=== PATIENT | male | born 1955 | race Two or more races ===

== ENCOUNTER 2020-05-19 08:29 | Inpatient (IN) | payer OTHER ==
--- NOTE | 2020-05-13 11:05 | NUR ---
"*-* CASE MANAGEMENT INSURANCE INFORMATION *-* CERTIFIED LETTER FOR TOTAL KNEE REPLACEMENT IS SCHEDULED FOR 05/19/[address] VILLALOBOS. Please call or email Adjustor LUIS ANTONIO VALENTIN [phone] EMAIL [email or web address] Claim# [id number] DOS 05/19/2020 DOI 06/11/2019 *-* PLEASE UTILIZE LETTER EMAILED TO HOLLY VILLALPANDO FOR DISCHARGE PLANNING NEEDS *-* *-* NO CLINICALS HAVE BEEN FAXED INSURANCE INFORMATION ONLY *-* Addendum: 05/13/20 at 1241 by HOLLY VILLALPANDO Luis Antonio Valentin | Sr. Winery Worker [place], [place] DIRECT [phone] | FAX [phone] EMAIL [email or web address] | Caring counts"
[~2020-05-19] VITALS: Ht 175.3 cm; Wt 113.4 kg
[2020-05-19] VITALS (20 sets, daily range): BP systolic 106–127; BP diastolic 67–86
--- NOTE | 2020-05-19 07:09 | Pre-Procedure Note/Attestation ---
Pre-Procedure Note/Attestation Complete Prior to Procedure Planned Procedure: left Procedure Narrative: left total knee arthroplasty Indications for Procedure Pre-Operative Diagnosis: left knee arthritis Attestation I attest that I discussed the nature of the procedure; its benefits; risks and complications; and alternatives (and the risks and benefits of such alternatives ), prior to the procedure, with the patient (or the patient's legal professional healthcare representative). I attest that, if there was a reasonable possibility of needing a blood transfusion, the patient (or the patient's legal professional healthcare representative) was given the [facility] standardized written summary, pursuant to the Jay Pretty Blood Safety Act ([place] Health and Safety Code # 1645, as amended). I attest that I re-evaluated the patient just prior to the surgery and that there has been no change in the patient's H&P, except as documented below: NONE Jerel Bobo MD May 19, 2020 07:09
[~2020-05-19 08:29] MED LIST: ceFAZolin 1gm IVPB IVPB ONE; celeBREX 200mg Cap **SURGERY PATIENTS ONLY ORAL ONE; oxyCONTIN 10mg tab ORAL ONE
[2020-05-19] MEDS ORDERED: LR 1000ml 1,000 ML IVLG SCH (09:28)
[2020-05-19] MEDS ORDERED: oxyCODONE HCL/Acetaminophen 5/325mg ORAL PRN (09:30)
[2020-05-19] MEDS ORDERED: Metoclopramide 10mg/2ml Inj IVP PRN (09:30)
[2020-05-19] MEDS ORDERED: HYDROcodone/Acetamin 7.5/325 tab ORAL PRN ×2 (09:30→11:30)
[2020-05-19] MEDS ORDERED: DiphenhydrAMINE 50mg/ml Inj IVP PRN (09:30)
[2020-05-19] MEDS ORDERED: HYDROcodone/Acetamin 5/325 tab ORAL PRN ×2 (09:30→11:30)
[2020-05-19] MEDS ORDERED: Hydromorphone 0.5mg/0.5ml inj IVP PRN (09:30)
[2020-05-19] MEDS ORDERED: Acetaminophen (Non formulary) 100 ML IV ONE (09:30)
[2020-05-19] MEDS ORDERED: Meperidine 25mg/0.5ml Inj (FOR RIGORS ONLY) IV PRN (09:30)
[2020-05-19] MEDS ORDERED: Labetalol 5mg/ml 20ml vial IV PRN (09:30)
[2020-05-19] MEDS ORDERED: fentaNYL 100 mcg/2 mL IV PRN (09:30)
[2020-05-19] MEDS ORDERED: Midazolam 2mg/2ml Inj IVP PRN (09:30)
[2020-05-19] MEDS ORDERED: LORazepam Inj 2mg/ml 1ml IV PRN (09:30)
[2020-05-19] MEDS ORDERED: Atropine Sulfate 0.4mg/ml inj IVP PRN (09:30)
[2020-05-19] MEDS ORDERED: Tranexamic Acid 1,000 MG in NS 65 ML IV ONE (09:30)
[2020-05-19] MEDS ORDERED: Ketorolac 30mg Inj IV PRN ×2 (09:30)
--- NOTE | 2020-05-19 09:31 | Immediate Post-Op Evaluation ---
Immediate Post-Op Evalulation Immediate Post-Op Evalulation Procedure: L TKR Date of Evaluation: May 19, 2020 Time of Evaluation: 13:47 IV Fluids: 1000 LR Blood Products: 0 Estimated Blood Loss: 75 Urinary Output: 75 Blood Pressure Systolic: 109 Blood Pressure Diastolic: 67 Pulse Rate: 86 Respiratory Rate: 16 O2 Sat by Pulse Oximetry: 93 Temperature (Fahrenheit): 98.1 Pain Score (1-10): 2 Nausea: No Vomiting: No Complications Stable Patient Status: awake, reacts, patent, none Hydration Status: adequate Dru Grams Ancef IV Given Within 1 Hr of Incision: Yes Time Given: 10:46 Rudolph Lam MD May 19, 2020 09:31
[2020-05-19] MEDS ORDERED: Ropivacaine 5mg/ml Vial 20ml INJ ONE (10:00)
[2020-05-19] MEDS ORDERED: GLIPIZIDE5 MG ORAL (10:01)
[2020-05-19] MEDS ORDERED: METFORMIN HCL500 M1 ORAL (10:01)
[2020-05-19] MEDS ORDERED: ASPIR 8181 MG ORAL (10:01)
[2020-05-19] MEDS ORDERED: ATORVASTATIN CA40 MG ORAL (10:01)
[2020-05-19] MEDS ORDERED: bp med PO (10:01)
--- NOTE | 2020-05-19 10:06 | Anethesia Preoperative Eval ---
Anesthesia Pre-op PMH/ROS General Date of Evaluation: May 19, 2020 Time of Evaluation: 10:16 Anesthesiologist: Genaro ASA Score: ASA 3 Mallampati Score Class I : Soft palate, uvula, fauces, pillars visible Class II: Soft palate, uvula, fauces visible Class III: Soft palate, base of uvula visible Class IV: Only hard plate visible Mallampati Classification: Class III Surgeon: Jeramie Diagnosis: L Knee Pain Surgical Procedure: L TKR Anesthesia History: none Family History: no anesthesia problems Allergies: Coded Allergies: No Known Allergies (Unverified , 05/19/20) Medications: see eMAR Patient NPO?: Yes Past Medical History Cardiovascular: Reports: HTN, other - HL Pulmonary: Reports: other - Pneumonia Endocrine: Reports: DM Musculoskeletal/Integumentary: Reports: OA Other: obesity - BMI 39 Anesthesia Pre-op Phys. Exam Physician Exam Last Vital Signs Date Time Temp Pulse Resp B/P (MAP) Pulse Ox O2 Delivery O2 Flow Rate FiO2 05/19/20 09:55 98.5 73 18 106/71 (83) 96 Constitutional: NAD Neurologic: CN 2-12 intact Cardiovascular: RRR Respiratory: CTA Gastrointestinal: S/NT/ND Airway Exam Mallampati Score: Class III MO: limited ROM: limited Teeth: missing, intact Anesthesia Pre-op A/P Labs Chemistry Test 05/19/20 09:38 POC Whole Blood Glucose 147 MG/DL (74-106) H Risk Assessment & Plan Assessment: ASA 3 Plan: GA, L Adductor/Femoral Block, SED Pre-Antibiotics Dru Grams Ancef IV Given Within 1 Hr of Incision: Yes Time Given: 10:46 Rudolph Lam MD May 19, 2020 10:06
[2020-05-19] MEDS ORDERED: Lidocaine 1% MPF 10mg/ml 5ml ONE (10:09)
[2020-05-19] MEDS ORDERED: Sodium Chloride 10ml vial INJ ONE (10:09)
[2020-05-19] MEDS ORDERED: celeBREX 200mg Cap **SURGERY PATIENTS ONLY ORAL ONE (10:11)
[2020-05-19] MEDS ORDERED: oxyCONTIN 10mg tab ORAL ONE (10:11)
[2020-05-19] MEDS ORDERED: fentaNYL 100 mcg/2 mL IV ONE ×2 (10:12→11:13)
[2020-05-19] MEDS ORDERED: NeoSporin Gu Irrig 1ml Amp IRRIG ONE (10:17)
[2020-05-19] MEDS ORDERED: Bacitracin 50000 Units Vial ONE (10:17)
--- NOTE | 2020-05-19 10:22 | 48 Hour Post Anesthesia Eval ---
Post Anesthesia Evaluation Procedure: L TKR Date of Evaluation: May 19, 2020 Time of Evaluation: 15:48 Blood Pressure Systolic: 122 0: 87 Pulse Rate: 69 Respiratory Rate: 18 Temperature (Fahrenheit): 98 O2 Sat by Pulse Oximetry: 96 Airway: patent Nausea: No Vomiting: No Pain Intensity: 2 Hydration Status: adequate Cardiopulmonary Status: Stable Mental Status/LOC: patient returned to baseline Follow-up Care/Observations: 0 Post-Anesthesia Complications: 0 Follow-up care needed: N/A Rudolph Lam MD May 19, 2020 10:22
[2020-05-19] MEDS ORDERED: NS Irrig 1000ml ONE (10:30)
[2020-05-19] MEDS ORDERED: NS Irrig 2000ml IRRIG ONE (10:30)
[2020-05-19] MEDS ORDERED: LR 1000ml ONE (10:30)
[2020-05-19] MEDS ORDERED: Sterile Water Irrig 1000ml IRRIG ONE (10:30)
[2020-05-19] MEDS ORDERED: HYDROmorphone 1mg/ml Carpuject SUBQ PRN (11:30)
[2020-05-19] MEDS ORDERED: Milk of Magnesia 30ml Ud ORAL PRN (11:30)
[2020-05-19] MEDS: Docusate 100mg cap ORAL SCH ×2 (13:00→18:00)
--- NOTE | 2020-05-19 13:23 | Brief Operative Note ---
Immediate Post Operative Note Operative Note Chief Complaint: left knee pain Pre-op Diagnosis: left knee arthritis Procedure: left total knee arthroplasty Post-op Diagnosis: same as pre-op Surgeon: md arpan Flat Bed Operator: ace meade Anesthesiologist: md tereza Anesthesia: general Specimen: yes Complications: none Condition: stable Fluids: ns Estimated Blood Loss: minimal Drains: none Implant(s) used?: Yes - Jerel Cisneros MD May 19, 2020 13:23
--- NOTE | 2020-05-19 15:32 | NUR ---
NURSE NOTES: Received report from Lizeth Hernandez RN, pt a/a/o easy to arouse, with no signs of distress or other issues at this time. no c/o of pain. surgical dressing dry and intact, knee immobilizer as well as ice pack in place. IV on the right hand gauge#18 running D51/2NS @75ml/hr. will review orders and will carry on as indicated. I will f/u as needed.
--- NOTE | 2020-05-19 15:45 | Operative Note - Dictated ---
DATE OF OPERATION: 05/19/2020 PREOPERATIVE DIAGNOSIS: Left knee end-stage arthritis. POSTOPERATIVE DIAGNOSIS: Left knee end-stage arthritis. PROCEDURE: Left total knee arthroplasty using Bree Triathlon System, size 7 femur, size 6 tibia, size 33 mm all-poly patella, and 9 mm ultra cross-linked tibial insert. SURGEON: Cherise Bobo MD. PLASTIC SURGERY NURSE: Raissa Tyler PA-C. ANESTHESIOLOGIST: Rudolph Lam MD. ANESTHESIA: General LMA anesthesia combined with adductor block for postoperative pain management. ESTIMATED BLOOD LOSS: Less than 50 mL. TOURNIQUET TIME: 75 minutes. COMPLICATIONS: None. BRIEF HISTORY: Patient is a pleasant 64-year-old gentleman who has had ongoing left knee pain. He failed nonoperative treatment. After full discussion of risks and benefits of surgery and complications associated with it including infection, bleeding, neurovascular complication, possibility of continued pain, possibility of DVT, PE, need for resection arthroplasty, continued stiffness and loss of motion, other complications that may arise and revision surgery as may be necessary, he opted for surgical treatment as described above. OPERATIVE PROCEDURE: Patient was brought to the operating room and was placed supine. All pressure points were well padded. General anesthesia was induced and adductor block was performed. The left leg was prepped and draped in usual sterile fashion and time-out was performed and preop antibiotics and tranexamic acid was given. The left knee was exsanguinated. Tourniquet was inflated to 275 mmHg. Standard anterior approach to the knee was undertaken. The incision was taken through subcutaneous tissue. Medial parapatellar arthrotomy was performed. The fluid was removed. The medial releases were performed and the patella was everted and knee was flexed. The fat pad was removed and ACL and PCL were removed. All osteophytes were removed. At this point, intramedullary access into the canal was obtained using a drill. Intramedullary guide was placed and 5 degree valgus distal femoral cut was performed without any complication. At this point, measurements were made and size 7 femur appeared to be the right side. A cutting guide was placed in 3 degrees of external rotation. Anterior, posterior, and chamfer cuts were performed without any complication. The trial femur was applied and slightly lateralized and peg holes were drilled. At this point, care was given to the tibia. The anterior tibial spine was cherise to recreate anatomical axis. The extramedullary guide was applied and anatomical axis was recreated and slope was recreated. At this point, 9 mm was taken off the least involved side which was the lateral side. Posterior, medial, and lateral retractors were placed in and patellar tendon was protected and the cut was performed without any complication. This provided excellent tibial cut and alignment appeared to be excellent. At this point, the flexion-extension gap was checked and appeared to be equal in flexion and extension. The sizing of tibia was performed and size 6 tibia appeared to be the right size. The tibia was placed in about 3 degrees external rotation and it was drilled and then punched. At this point, care was given to the patella. The patella was everted, it measured 25 mm in thickness. A freehand cut of the patella was performed and 33 mm patella appeared to be the right fit. The peg holes were drilled without any complication. At this point, the femoral component, tibial component, and the patellar component were all applied for trials and 9 mm poly was inserted. The range of motion was checked and appeared to be excellent at 0, 30 degrees, 45 degrees, 90 degrees. There was excellent stability at those various degrees. Patellofemoral joint had excellent patellofemoral tracking. At this point, all trial components were removed and the knee was thoroughly washed out using Simpulse irrigation and the femoral component, tibial component, and patellar components were all cemented without any complication. Excess cement was removed. Cement was allowed to harden in compression. Once this was completed, the knee was thoroughly irrigated again. The trialing was performed using different tibial inserts, 9 mm insert appeared to be the right side. At this point, after washing out the tibial tray and the entire knee, a 9 mm ultra cross-linked polyethylene was inserted without any complication with locking. All wounds were then thoroughly irrigated using copious amount of fluid. The tourniquet was deflated. There were minimal bleeders, which were stopped. The extensor mechanism was closed using #1 Vicryl suture. Subcutaneous tissue was closed using 2-0 Vicryl suture. The skin was closed using 3-0 Monocryl suture. Dermabond was applied. Sterile dressing was applied. The patient was taken to recovery room in stable condition. All lap counts and instrument counts were correct. Cherise Bobo M.D. DR: CHANTEL JOB#: [id number] CC: DESHAWN
[2020-05-19] MEDS: D5 1/2NS w/KCl 20mEq 1,000 ML IV SCH (16:00)
--- NOTE | 2020-05-19 17:24 | Diagnostic Imaging Report ---
Indications: Postoperative, knee pain Technique: Two views of the left knee Comparison: None Findings: Two postoperative views of the knee demonstrate total knee arthroplasty, good anatomic alignment of the prosthesis. . There is postsurgical soft tissue air. Impression: Postoperative left knee, no unusual features.
--- NOTE | 2020-05-19 19:44 | NUR ---
NURSE HAND-OFF: Important Events on Shift: n/a Patient Status: FULL code Diet: clear liquids advanced to regular Pending Orders: Pending Results/Labs:CBC, BMP Pending MD notification: n/a Latest Vital Signs: Temperature 97.5 , Pulse 108 , B/P 119 /82 , Respiratory Rate 20 , O2 SAT 94 , Nasal Cannula, O2 Flow Rate 4 . Vital Sign Comment: heart rate in the high 110's but asymptomatic no chest pain Latest Oconnor Fall Score: Fall Risk: unknown, s/p left TKA Safety Measures: Call light , Bed Alarm , Side Rails Side Rails x1, Bed position . Fall Precautions: Report given to Swetha BLAS. pt in stable condition
--- NOTE | 2020-05-19 19:45 | NUR ---
NURSE NOTES: Received report from Pippa BLAS. Rounding is done. Patient is a/ox4. Denied any pain at this time. NO any distress noted at this time. Breathing is even and unlabored. Patient void during morning shift and will continue to monitor. IV site is intact and iv fluid is running. Surgical Dressing is c/d/i. applied immobilizer helping by Viet. Bed is on alarm, locked, and lowest position. Call light within reach. Will continue to monitor.
[2020-05-19] MEDS: NovoLOG Insulin Flexpen SUBQ SCH (21:00)
[2020-05-19] MEDS: oxyCONTIN 10mg tab ORAL SCH (21:00)
[2020-05-19] MEDS: ceFAZolin sod 1 GM in D5W 55 ML IV SCH (22:00)
[2020-05-20] VITALS: BP 111/80
[2020-05-20 04:00] VITALS: BP 116/74
[2020-05-20] MEDS: ceFAZolin sod 1 GM in D5W 55 ML IV SCH (04:59)
[2020-05-20] MEDS: D5 1/2NS w/KCl 20mEq 1,000 ML IV SCH (04:59)
[2020-05-20 05:37] LABS: BASOPHILS % (AUTO) 1.2 % (0.0-2.0); HEMATOCRIT 42.8 % (42.0-52.0); HEMOGLOBIN 13.7 G/DL (14.2-18.0); LYMPHOCYTES % (AUTO) 8.8 % (20.0-45.0); MEAN CORPUSCULAR VOLUME 93 FL (80-99); MONOCYTES % (AUTO) 7.9 % (1.0-10.0); NEUTROPHILS % (AUTO) 82.1 % (45.0-75.0); PLATELET COUNT 237 K/UL (150-450); RED BLOOD COUNT 4.59 M/UL (4.70-6.10); RED CELL DISTRIBUTION WIDTH 12.4 % (11.6-14.8); WHITE BLOOD COUNT 7.3 K/UL (4.8-10.8)
[2020-05-20] MEDS: NovoLOG Insulin Flexpen SUBQ SCH ×4 (05:43→20:17)
[2020-05-20 05:52] LABS: ANION GAP 8 mmol/L (5-15); BLOOD UREA NITROGEN 29 mg/dL (7-18); CALCIUM 8.5 MG/DL (8.5-10.1); CARBON DIOXIDE 30 MMOL/L (21-32); CHLORIDE 99 MMOL/L (98-107); CREATININE 1.6 MG/DL (0.55-1.30); POTASSIUM 3.7 MMOL/L (3.5-5.1); SODIUM 137 MMOL/L (136-145)
--- NOTE | 2020-05-20 07:16 | NUR ---
NURSE HAND-OFF: Important Events on Shift:[POST OP] Patient Status: [STABLE] Diet: [REGULAR] Pending Orders: [NONE] Pending Results/Labs:[NONE] Pending MD notification:[NONE] Latest Vital Signs: Temperature 98.5 , Pulse 91 , B/P 116 /74 , Respiratory Rate 19 , O2 SAT 95 , Nasal Cannula, O2 Flow Rate 3.0 . Vital Sign Comment: [STABLE] Latest Oconnor Fall Score: Fall Risk: Safety Measures: Call light , Bed Alarm , Side Rails Side Rails x1, Bed position . Fall Precautions: Report given to [GLORIA RN].
--- NOTE | 2020-05-20 07:45 | NUR ---
NURSE NOTES: Received report from Swetha BLAS. Patient is awake in bed in RA. Pt a/ox4, able to make needs known. Denied any pain at this time. NO any distress noted. Breathing is even and unlabored. IV site is intact and iv fluid is running. Surgical Dressing is c/d/i. Noted immobilizer in place. Bed is on alarm, locked, and lowest position. Call light within reach. Will continue to monitor.
[2020-05-20 08:00] VITALS: BP 130/74
--- NOTE | 2020-05-20 08:05 | Orthopedic Progress Note ---
Orthopedic - Progress Note Subjective Symptoms: improved Objective Laboratory Tests Test 05/19/20 09:38 05/19/20 17:03 05/19/20 22:15 05/20/20 04:50 POC Whole Blood Glucose 147 MG/DL (74-106) H 231 MG/DL (74-106) H 308 MG/DL (74-106) H White Blood Count 7.3 K/UL (4.8-10.8) Red Blood Count 4.59 M/UL (4.70-6.10) L Hemoglobin 13.7 G/DL (14.2-18.0) L Hematocrit 42.8 % (42.0-52.0) Mean Corpuscular Volume 93 FL (80-99) Mean Corpuscular Hemoglobin 29.9 PG (27.0-31.0) Mean Corpuscular Hemoglobin Concent 32.1 G/DL (32.0-36.0) Red Cell Distribution Width 12.4 % (11.6-14.8) Platelet Count 237 K/UL (150-450) Mean Platelet Volume 6.3 FL (6.5-10.1) L Neutrophils (%) (Auto) 82.1 % (45.0-75.0) H Lymphocytes (%) (Auto) 8.8 % (20.0-45.0) L Monocytes (%) (Auto) 7.9 % (1.0-10.0) Eosinophils (%) (Auto) 0.0 % (0.0-3.0) Basophils (%) (Auto) 1.2 % (0.0-2.0) Sodium Level 137 MMOL/L (136-145) Potassium Level 3.7 MMOL/L (3.5-5.1) Chloride Level 99 MMOL/L (98-107) Carbon Dioxide Level 30 MMOL/L (21-32) Anion Gap 8 mmol/L (5-15) Blood Urea Nitrogen 29 mg/dL (7-18) H Creatinine 1.6 MG/DL (0.55-1.30) H Estimat Glomerular Filtration Rate 43.9 mL/min (>60) Glucose Level 282 MG/DL (74-106) H Calcium Level 8.5 MG/DL (8.5-10.1) Last 24 Hour Vital Signs Date Time Temp Pulse Resp B/P (MAP) Pulse Ox O2 Delivery O2 Flow Rate FiO2 8/19/20 04:00 98.5 91 19 116/74 (88) 95 05/20/20 00:00 98.1 101 19 111/80 (90) 94 05/19/20 21:30 97.5 05/19/20 21:00 Nasal Cannula 3.0 05/19/20 20:00 98.6 106 19 127/84 (98) 95 05/19/20 18:00 97.5 108 20 119/82 (94) 94 05/19/20 17:30 98.1 107 20 121/80 (94) 93 05/19/20 17:00 97.2 104 18 111/84 (93) 93 05/19/20 16:30 98.1 105 20 118/81 (93) 95 05/19/20 16:00 97.9 103 20 124/82 (96) 95 05/19/20 15:30 97.2 100 20 120/86 (97) 94 05/19/20 15:15 97.8 102 18 126/83 (97) 92 05/19/20 14:50 94 16 122/79 94 Nasal Cannula 4 05/19/20 14:40 97.8 96 16 123/83 95 Nasal Cannula 4 05/19/20 14:30 94 15 120/83 94 Nasal Cannula 4 05/19/20 14:25 93 16 123/84 94 Nasal Cannula 4 05/19/20 14:15 92 16 121/81 98 Simple Mask 8 05/19/20 14:05 92 17 122/79 94 Simple Mask 8 05/19/20 13:55 85 17 118/78 94 Simple Mask 8 05/19/20 13:50 85 14 118/78 91 Simple Mask 10 05/19/20 13:45 85 15 107/77 91 Simple Mask 10 05/19/20 13:40 85 15 107/72 92 Simple Mask 10 05/19/20 13:35 98.1 86 16 109/67 92 Simple Mask 10 05/19/20 13:35 69 18 96 05/19/20 13:34 86 16 93 05/19/20 10:01 Room Air 05/19/20 09:55 98.5 73 18 106/71 (83) 96 Intake and Output 05/19/20 05/20/20 19:00 07:00 Intake Total 1150 ml 505 ml Output Total 125 ml Balance 1025 ml 505 ml Intake IV Total 1150 ml 505 ml Output Urine Total 75 ml Estimated Blood Loss 50 ml # Voids 1 Laboratory Tests Test 05/19/20 09:38 05/19/20 17:03 05/19/20 22:15 05/20/20 04:50 POC Whole Blood Glucose 147 MG/DL (74-106) H 231 MG/DL (74-106) H 308 MG/DL (74-106) H White Blood Count 7.3 K/UL (4.8-10.8) Red Blood Count 4.59 M/UL (4.70-6.10) L Hemoglobin 13.7 G/DL (14.2-18.0) L Hematocrit 42.8 % (42.0-52.0) Mean Corpuscular Volume 93 FL (80-99) Mean Corpuscular Hemoglobin 29.9 PG (27.0-31.0) Mean Corpuscular Hemoglobin Concent 32.1 G/DL (32.0-36.0) Red Cell Distribution Width 12.4 % (11.6-14.8) Platelet Count 237 K/UL (150-450) Mean Platelet Volume 6.3 FL (6.5-10.1) L Neutrophils (%) (Auto) 82.1 % (45.0-75.0) H Lymphocytes (%) (Auto) 8.8 % (20.0-45.0) L Monocytes (%) (Auto) 7.9 % (1.0-10.0) Eosinophils (%) (Auto) 0.0 % (0.0-3.0) Basophils (%) (Auto) 1.2 % (0.0-2.0) Sodium Level 137 MMOL/L (136-145) Potassium Level 3.7 MMOL/L (3.5-5.1) Chloride Level 99 MMOL/L (98-107) Carbon Dioxide Level 30 MMOL/L (21-32) Anion Gap 8 mmol/L (5-15) Blood Urea Nitrogen 29 mg/dL (7-18) H Creatinine 1.6 MG/DL (0.55-1.30) H Estimat Glomerular Filtration Rate 43.9 mL/min (>60) Glucose Level 282 MG/DL (74-106) H Calcium Level 8.5 MG/DL (8.5-10.1) Wound: clean, dry, intact Drains: none Neuro Status: normal Vascular Status: normal Additional Comments xray reviewed: excellent Assessment Post-op Diagnosis POD 1 left total knee arthroplasty Plan Plan: PT, discharge plan - possibly home with services and DME tomorrow Raissa Tyler May 20, 2020 08:05
[2020-05-20] MEDS: celeBREX 200mg Cap **SURGERY PATIENTS ONLY ORAL SCH (09:12)
[2020-05-20] MEDS: Docusate 100mg cap ORAL SCH ×3 (09:12→17:45)
[2020-05-20] MEDS: oxyCONTIN 10mg tab ORAL SCH ×2 (09:13→20:10)
[2020-05-20 12:00] VITALS: BP 111/73
--- NOTE | 2020-05-20 15:18 | NUR ---
CASE MANAGEMENT: INITIAL REVIEW 64YR MALE HERE FOR SCHEDULE SURGERY CC: LEFT KNEE ARTHRITIS SI: LEFT KNEE ARTHRITIS 98.5 73 18 106/71 96% ON RA BG 308 IS: IN SURG NOW LEFT KNEE ARTHROPLASTY X-RAY KNEE L-Postoperative left knee, no unusual features. \: 3E MED SURG UNIT CASE MANAGEMENT: REVIEW 05/20/20 SI: S/P LEFT KNEE ARTHROPLASTY LEFT KNEE ARTHRITIS 97.8 95 19 111/73 96% ON RA BUN/CREAT 29/1.6 BG 282 IS: IV D5 @75ML/HR ASA PO QD FEOSOL PO TID OXYCONTIN PO BID \: [facility] SURG UNIT
--- NOTE | 2020-05-20 15:20 | NUR ---
P.T Note: P.T evaluation completed and tx initiated per TKR protocol. Please refer to P.T evaluation for current functional status POC and recommendation.
--- NOTE | 2020-05-20 16:01 | NUR ---
*-* INSURANCE *-* UPDATED CLINICALS AND REVIEWS HAVE BEEN FAXED TO: Adjustre[employer] VALENTIN PH [phone] EMAIL [email or web address]
[2020-05-20 16:30] VITALS: BP 121/73
--- NOTE | 2020-05-20 17:03 | General Progress Note ---
Assessment/Plan Assessment/Plan: sp knee replacement htn hld type 2 diabetes post op care pain control PT oob bp controlled accuchecks noted on ss insulin dvt and ulcer prophylaxis Subjective Allergies: Coded Allergies: No Known Allergies (Unverified , 05/19/20) Subjective doing well post knee replacment pos pain no chest pain or sob pos passing gas and bm Objective Last 24 Hour Vital Signs Date Time Temp Pulse Resp B/P (MAP) Pulse Ox O2 Delivery O2 Flow Rate FiO2 05/20/20 12:00 97.8 95 19 111/73 (86) 96 05/20/20 09:43 98.5 05/20/20 09:00 Nasal Cannula 3.0 05/20/20 08:00 97.8 70 19 130/74 (92) 97 05/20/20 04:00 98.5 91 19 116/74 (88) 95 05/20/20 00:00 98.1 101 19 111/80 (90) 94 05/19/20 21:00 Nasal Cannula 3.0 05/19/20 20:00 98.6 106 19 127/84 (98) 95 05/19/20 18:00 97.5 108 20 119/82 (94) 94 05/19/20 17:30 98.1 107 20 121/80 (94) 93 Intake and Output 05/19/20 05/20/20 19:00 07:00 Intake Total 1150 ml 505 ml Output Total 125 ml Balance 1025 ml 505 ml Intake IV Total 1150 ml 505 ml Output Urine Total 75 ml Estimated Blood Loss 50 ml # Voids 1 Laboratory Tests 05/19/20 17:03: POC Whole Blood Glucose 231H 05/19/20 22:15: POC Whole Blood Glucose 308H 05/20/20 04:50: White Blood Count 7.3, Red Blood Count 4.59L, Hemoglobin 13.7L, Hematocrit 42.8 , Mean Corpuscular Volume 93, Mean Corpuscular Hemoglobin 29.9, Mean Corpuscular Hemoglobin Concent 32.1, Red Cell Distribution Width 12.4, Platelet Count 237, Mean Platelet Volume 6.3L, Neutrophils (%) (Auto) 82.1H, Lymphocytes (%) (Auto) 8.8L, Monocytes (%) (Auto) 7.9, Eosinophils (%) (Auto) 0.0, Basophils (%) (Auto) 1.2, Sodium Level 137, Potassium Level 3.7, Chloride Level 99, Carbon Dioxide Level 30, Anion Gap 8, Blood Urea Nitrogen 29H, Creatinine 1.6H, Estimat Glomerular Filtration Rate 43.9, Glucose Level 282H, Calcium Level 8.5 05/20/20 11:51: POC Whole Blood Glucose [Pending] Height (Feet): 5 Height (Inches): 9.00 Weight (Pounds): 250 General Appearance: WD/WN, no apparent distress Neck: supple Cardiovascular: normal rate Respiratory/Chest: lungs clear Abdomen: soft Edema: no edema noted Arm (L), no edema noted Arm (R), no edema noted Leg (L), no edema noted Leg (R), no edema noted Pedal (L), no edema noted Pedal (R), no edema noted Generalized Objective knee dressing clean no sign of infection neurvascular intact Cuate Villalobos MD May 20, 2020 17:03
--- NOTE | 2020-05-20 19:30 | NUR ---
NURSE NOTES: Received report from Alicja Goddard RN. Patient seen walking with walker, steady gait. Uses urinal.
--- NOTE | 2020-05-20 19:30 | NUR ---
NURSE HAND-OFF: Important Events on Shift:[N] Patient Status: [stable] Diet: [Reg] Pending Orders: [n] Pending Results/Labs:[n] Pending MD notification:[n] Latest Vital Signs: Temperature 98.5 , Pulse 82 , B/P 121 /73 , Respiratory Rate 19 , O2 SAT 96 , Nasal Cannula, O2 Flow Rate 3.0 . Vital Sign Comment: [stable] Latest Oconnor Fall Score: Fall Risk: Safety Measures: Call light Within Reach, Bed Alarm Zone 2, Side Rails Side Rails x2, Bed position Low and Locked. Fall Precautions: Report given to [ROOPA Lujan].
--- NOTE | 2020-05-20 19:45 | NUR ---
NURSE NOTES: Patient requested to be off of CMP. Tolerated activity well.
[2020-05-20 20:00] VITALS: BP 122/84
[2020-05-21] VITALS: BP 110/69
[2020-05-21 05:39] LABS: BASOPHILS % (AUTO) 1.1 % (0.0-2.0); HEMATOCRIT 40.2 % (42.0-52.0); LYMPHOCYTES % (AUTO) 13.5 % (20.0-45.0); MEAN CORPUSCULAR VOLUME 92 FL (80-99); MONOCYTES % (AUTO) 11.5 % (1.0-10.0); PLATELET COUNT 198 K/UL (150-450); RED BLOOD COUNT 4.35 M/UL (4.70-6.10); RED CELL DISTRIBUTION WIDTH 12.2 % (11.6-14.8); WHITE BLOOD COUNT 6.9 K/UL (4.8-10.8)
[2020-05-21] MEDS: NovoLOG Insulin Flexpen SUBQ SCH ×2 (06:08→11:50)
--- NOTE | 2020-05-21 07:30 | NUR ---
NURSE NOTES: RECEIVED PATIENT A/A/OX4 IN BED ON A SITTING POSITION. IV ACCESS GOT D/C'D BY PATIENT ACCIDENTALLY. PER DR. VILLALOBOS IS OKAY NOT TO HAVE IV ACCESS. PATIENT WILL BE DISCHARGE TODAY. APPETITE IS INADEQUATE. UTILIZE IS W/A 10X. NO ACUTE RESP DISTRESS NOTED. REFUSED TO HAVE SCD'S ON. SURGICAL DRSG IS DRY AND INTACT. KEEP BED IN THE LOWEST POSITION, SIDERAILS ARE UPX2, CALL LIGHT IS WITHIN EASY REACH. BED BRAKES AND LOCK ENGAGED. WILL CONT TO MONITOR.
--- NOTE | 2020-05-21 07:31 | Orthopedic Progress Note ---
Orthopedic - Progress Note Subjective Symptoms: c/o post-op knee pain Objective Last 24 Hour Vital Signs Date Time Temp Pulse Resp B/P (MAP) Pulse Ox O2 Delivery O2 Flow Rate FiO2 05/21/20 00:00 98.2 111 20 110/69 (83) 96 05/20/20 21:00 Room Air 05/20/20 20:40 98.5 05/20/20 20:00 98.8 102 19 122/84 (97) 97 05/20/20 16:30 98.5 82 19 121/73 (89) 96 05/20/20 12:00 97.8 95 19 111/73 (86) 96 05/20/20 09:00 Nasal Cannula 3.0 05/20/20 08:00 97.8 70 19 130/74 (92) 97 Laboratory Tests Test 05/20/20 11:51 05/20/20 20:12 05/21/20 04:50 05/21/20 04:57 POC Whole Blood Glucose Pending 194 MG/DL (74-106) H 211 MG/DL (74-106) H White Blood Count 6.9 K/UL (4.8-10.8) Red Blood Count 4.35 M/UL (4.70-6.10) L Hemoglobin 13.0 G/DL (14.2-18.0) L Hematocrit 40.2 % (42.0-52.0) L Mean Corpuscular Volume 92 FL (80-99) Mean Corpuscular Hemoglobin 29.9 PG (27.0-31.0) Mean Corpuscular Hemoglobin Concent 32.4 G/DL (32.0-36.0) Red Cell Distribution Width 12.2 % (11.6-14.8) Platelet Count 198 K/UL (150-450) Mean Platelet Volume 6.4 FL (6.5-10.1) L Neutrophils (%) (Auto) 74.0 % (45.0-75.0) Lymphocytes (%) (Auto) 13.5 % (20.0-45.0) L Monocytes (%) (Auto) 11.5 % (1.0-10.0) H Eosinophils (%) (Auto) 0.0 % (0.0-3.0) Basophils (%) (Auto) 1.1 % (0.0-2.0) Wound: clean, dry Drains: none Assessment Procedure Performed left total knee arthroplasty Plan Plan: PT, discharge to home Additional Comments Discharge home after 2 PT sessions today Dressing change Follow up in 10 days Jerel Bobo MD May 21, 2020 07:31
--- NOTE | 2020-05-21 07:34 | NUR ---
NURSE HAND-OFF: Important Events on Shift:[AMBULATE INDEPENDENTLY/ PAIN MANAGEMENT] Patient Status: [STABLE ] Diet: [REG ] Pending Orders: [] Pending Results/Labs:[] Pending MD notification:[] Latest Vital Signs: Temperature 98.2 , Pulse 111 , B/P 110 /69 , Respiratory Rate 20 , O2 SAT 96 , Room Air, O2 Flow Rate 3.0 . Vital Sign Comment: [] Latest O[place]nor Fall Score: Fall Risk: Safety Measures: Call light Within Reach, Bed Alarm Zone 2, Side Rails Side Rails x2, Bed position Low and Locked. Fall Precautions: Report given to GOKUL VN
[2020-05-21 08:00] VITALS: BP 132/83
[2020-05-21] MEDS: celeBREX 200mg Cap **SURGERY PATIENTS ONLY ORAL SCH (08:13)
[2020-05-21] MEDS: Docusate 100mg cap ORAL SCH ×2 (08:14→12:17)
[2020-05-21] MEDS: oxyCONTIN 10mg tab ORAL SCH (08:14)
--- NOTE | 2020-05-21 08:49 | Discharge Summary ---
Discharge Summary Hospital Course Date of Admission May 19, 2020 at 08:41 Date of Discharge 05/21/2020 Admitting Diagnosis left knee arthritis Reason for Hospitalization: s/p left total knee arthroplasty HPI Michael Layne is a 64 year old male who was admitted on May 19, 2020 at 08:41 for Primary Oa Of Left Knee Consultations MD Wilfredo Procedures left total knee arthroplasty Hospital Course benign Discharge Condition Upon Discharge: improving, stable Discharge Vital Signs Last Vital Signs Date Time Temp Pulse Resp B/P (MAP) Pulse Ox O2 Delivery O2 Flow Rate FiO2 05/21/20 08:44 98.2 05/21/20 08:24 Room Air 05/21/20 08:00 116 21 132/83 (99) 100 05/20/20 09:00 3.0 Discharge Disposition Patient was discharged to home with services and Raissa Devi May 21, 2020 08:49
--- NOTE | 2020-05-21 10:13 | NUR ---
NURSE NOTES: CHANGED SURGICAL DRSG PER MD ORDER. PATIENT BEEN SEEN BY PT AND SITTING ON A CHAIR @ THIS TIME. NO ACUTE CARDIO-RESP DISTRESS NOTED. WILL CONT TO MONITOR.
--- NOTE | 2020-05-21 10:31 | NUR ---
Discharge planning Adjustor LUIS ANTONIO VALENTIN PH [phone] EMAIL [email or web address] Seeking HH for discharge today CM will f/u with search
[2020-05-21 12:06] VITALS: BP 117/82
--- NOTE | 2020-05-21 13:38 | NUR ---
Discharge planning Patient to be serviced by [facility] [id number] [facility] [id number], [place] [address] PH: [phone]
--- NOTE | 2020-05-21 14:11 | NUR ---
NURSE NOTES: DISCHARGE HOME WITH INSTRUCTIONS GIVEN AND HOME HEALTH INFO. AND WITH DME'S. IN STABLE CONDITION. NO IV ACCESS. SURGICAL DRSG RENDERED. VERIFIED HOME ADDRESS. [facility] PROVIDED HIM TRANSPORTATION.
--- NOTE | 2020-05-21 22:04 | General Progress Note ---
Assessment/Plan Assessment/Plan: sp knee replacement htn hld type 2 diabetes post op care pain control PT oob bp controlled accuchecks noted on ss insulin dvt and ulcer prophylaxis dc plans with HH Subjective Allergies: Coded Allergies: No Known Allergies (Unverified , 05/19/20) Subjective doing well post knee replacment pos pain no chest pain or sob pos passing gas and bm Objective Last 24 Hour Vital Signs Date Time Temp Pulse Resp B/P (MAP) Pulse Ox O2 Delivery O2 Flow Rate FiO2 05/21/20 12:06 97.7 113 22 117/82 (94) 100 05/21/20 08:44 98.2 05/21/20 08:24 Room Air 05/21/20 08:00 98.2 116 21 132/83 (99) 100 05/21/20 00:00 98.2 111 20 110/69 (83) 96 Laboratory Tests 05/21/20 04:50: White Blood Count 6.9, Red Blood Count 4.35L, Hemoglobin 13.0L, Hematocrit 40.2L , Mean Corpuscular Volume 92, Mean Corpuscular Hemoglobin 29.9, Mean Corpuscular Hemoglobin Concent 32.4, Red Cell Distribution Width 12.2, Platelet Count 198, Mean Platelet Volume 6.4L, Neutrophils (%) (Auto) 74.0, Lymphocytes ( %) (Auto) 13.5L, Monocytes (%) (Auto) 11.5H, Eosinophils (%) (Auto) 0.0, Basophils (%) (Auto) 1.1 05/21/20 04:57: POC Whole Blood Glucose 211H 05/21/20 11:46: POC Whole Blood Glucose 252H Height (Feet): 5 Height (Inches): 9.00 Weight (Pounds): 250 General Appearance: WD/WN Neck: supple Cardiovascular: normal rate Respiratory/Chest: lungs clear Abdomen: soft Objective knee dressing clean no sign of infection neurvascular intact Cuate Villalobos MD May 21, 2020 22:04
== END 2020-05-21 14:05 | disposition home or self-care (01) | DRG 470 ==
LOC: SDSOVERFLO 08:41 → 3E 15:15
PROC: 0SRD0J9 Replacement of Left Knee Joint with Synthetic Substitute, Cemented, Open Approach (ICD-10-PCS; principal; 2020-05-19 11:00)
DX: M17.12 Unilateral primary osteoarthritis, left knee (principal); I10 Essential (primary) hypertension; E11.9 Type 2 diabetes mellitus without complications; E78.5 Hyperlipidemia, unspecified; Z87.891 Personal history of nicotine dependence; Z79.84 Long term (current) use of oral hypoglycemic drugs
CPT/HCPCS: 36415; 80048; 82962; 85025; 86850; 86900; 86901; 87081; 94003; 94150; J1815; J2405; J2795